=== PATIENT | female | born 1990 | race Caucasian/White ===

== ENCOUNTER 2021-03-25 04:04 | Inpatient (IN) | payer MEDICAID ==
[~2021-03-25] VITALS: Ht 160 cm; Wt 54.4 kg
[2021-03-25] MEDS ORDERED: HALOPERIDOL 5 MG TABLET PO PRN (08:30)
[2021-03-25] MEDS ORDERED: ZOLPIDEM TARTRATE 10 MG TABLET PO PRN (08:30)
[2021-03-25 10:29] VITALS: BP 104/65
[2021-03-25] MEDS: RisperiDONE 2 MG TABLET PO SCH (16:56)
[2021-03-25 17:07] VITALS: BP 98/67
[2021-03-25] MEDS ORDERED: DOCUSATE SODIUM 100 MG CAPSULE PO PRN (17:45)
[2021-03-25] MEDS ORDERED: GuaiFENesin/D-METHORPHAN [SUGAR-FREE] 200-20MG/10 ML SYRUP UDCUP PO PRN (17:45)
[2021-03-25] MEDS ORDERED: PETROLATUM,WHITE 28 GM JELLY TP PRN (17:45)
[2021-03-25] MEDS ORDERED: LOPERAMIDE HCL 2 MG CAPSULE PO PRN (17:45)
[2021-03-25] MEDS ORDERED: ONDANSETRON HCL 4 MG TABLET PO PRN (17:45)
[2021-03-25] MEDS ORDERED: CloNIDine HCL 0.1 MG TABLET PO PRN (17:45)
[2021-03-25] MEDS ORDERED: MAG HYDROX/AL HYDROX/SIMETH ES 30 ML SUSPENSION UDCUP PO PRN (17:45)
[2021-03-25] MEDS ORDERED: ACETAMINOPHEN 325 MG TABLET PO PRN (17:45)
[2021-03-25] MEDS ORDERED: MAGNESIUM HYDROXIDE SUSPENSION 30 ML UDCUP PO PRN (17:45)
[2021-03-25] MEDS ORDERED: IBUPROFEN 400 MG TABLET PO PRN (17:45)
[2021-03-25] MEDS ORDERED: NICOTINE 14 MG/24 HOUR PATCH TD PRN (17:45)
[2021-03-25] MEDS ORDERED: ALBUTEROL SULFATE HFA 90 MCG/PUFF 8 GM INHALER IH PRN (17:45)
[2021-03-25] MEDS: LORazepam 2 MG TABLET PO PRN (21:03)
[2021-03-26 04:22] VITALS: BP 106/67
[2021-03-26 07:41] LABS: BASOPHILS % (AUTO) 0.6 % (0.0-2.0); EOSINOPHILS % (AUTO) 2.7 % (1.0-6.0); HEMOGLOBIN 12.1 g/dL (12.0-16.0); LYMPHOCYTES # (AUTO) 2.1 K/uL (1.0-4.8); LYMPHOCYTES % (AUTO) 63.7 % (22.0-44.0); MEAN CORPUSCULAR HEMOGLOBIN 31.4 pg (26.0-34.0); MEAN CORPUSCULAR HGB CONC 32.8 G/dL (31.0-37.0); MEAN CORPUSCULAR VOLUME 96 fL (80-100); MONOCYTES # (AUTO) 0.3 K/uL (0.1-1.0); MONOCYTES % (AUTO) 7.6 % (2.0-9.0); NEUTROPHILS # (AUTO) 0.8 K/uL (1.8-7.7); NEUTROPHILS % (AUTO) 25.4 % (40.0-70.0); PLATELET COUNT (AUTO) 124 K/uL (150-450); RED BLOOD CELL COUNT(AUTO) 3.87 MIL/uL (4.00-5.20)
[2021-03-26 07:51] LABS: HEMOGLOBIN A1C 4.7 % (3.8-5.6)
[2021-03-26 07:56] LABS: PLATELET MORPHOLOGY COMMENT LARGE PLTS PRESENT
[2021-03-26 07:57] LABS: APPEARANCE,URINE TURBID (CLEAR); BILIRUBIN,URINE NEGATIVE (NEGATIVE); GLUCOSE, URINE (UA) NEGATIVE (NEGATIVE); KETONES,URINE NEGATIVE (NEGATIVE); LEUKOCYTE ESTERASE ,URINE NEGATIVE (NEGATIVE); NITRATE,URINE NEGATIVE (NEGATIVE); OCCULT BLOOD,URINE TRACE (NEGATIVE); PROTEIN,URINE NEGATIVE (NEGATIVE); UROBILINOGEN,URINE 0.2 mg/dL (<=1.0)
[2021-03-26 08:01] LABS: AMPHET/METH SCREEN,URINE NEGATIVE (NEGATIVE); BARBITURATE SCREEN, URINE NEGATIVE (NEGATIVE); BENZODIAZEPINES SCREEN,URINE NEGATIVE (NEGATIVE); CANNABINOID SCREEN,URINE NEGATIVE (NEGATIVE); COCAINE SCREEN,URINE NEGATIVE (NEGATIVE); METHADONE SCREEN, URINE NEGATIVE (NEGATIVE); OPIATE SCREEN,URINE NEGATIVE (NEGATIVE)
[2021-03-26 08:02] LABS: PHENCYCLIDINE SCREEN,URINE NEGATIVE (NEGATIVE)
[2021-03-26 08:21] LABS: ALANINE AMINOTRANSFERASE 15 U/L (12-78); ALBUMIN 2.8 g/dL (3.4-5.0); ALKALINE PHOSPHATASE 31 U/L (46-116); ASPARTATE AMINOTRANSFERASE 8 U/L (15-37); BILIRUBIN,TOTAL 0.2 mg/dL (0.1-1.0); CALCIUM, TOTAL 8.5 mg/dL (8.8-10.5); CHLORIDE 107 mmol/L (98-107); CHOL/HDL RATIO 5.1 (3.9-5.7); CHOLESTEROL 152 mg/dL (131-200); CREATININE 0.81 mg/dL (0.60-1.30); FREE T4 (FREE THYROXINE) 1.07 ng/dL (0.76-1.46); GLOMERULAR FILTR. RATE CALC > 60 mL/min (>60); GLUCOSE,RANDOM 90 mg/dL (70-110); HCG,QUANTITATIVE < 1 mIU/mL (0-6); HDL CHOLESTEROL 30 mg/dL (40-60); LDL CHOL (CALC.) 102 mg/dL (0-130); POTASSIUM 3.9 mmol/L (3.5-5.1); SODIUM SERUM 145 mmol/L (136-145); THYROID STIMULATING HORMONE 0.72 uIU/mL (0.36-3.74); TOTAL PROTEIN, SERUM 5.6 g/dL (6.4-8.2); TRIGLYCERIDES 100 mg/dL (15-150); UREA NITROGEN, BLOOD 10 mg/dL (7-18)
[2021-03-26 08:27] LABS: ANION GAP 9 mmol/L (8-16); CARBON DIOXIDE 29 mmol/L (22-29)
[2021-03-26 08:30] LABS: AMORPHOUS SEDIMENT,UR Many /LPF (None Seen); BACTERIA,URINE None Seen /HPF (None Seen); RBC,URINE 0-2 /HPF (0-2); WBC,URINE None Seen /HPF (0-5)
[2021-03-26 08:37] VITALS: BP 113/74
[2021-03-26] MEDS: RisperiDONE 2 MG TABLET PO SCH ×2 (09:00→16:35)
[2021-03-26 16:21] VITALS: BP 96/68
[2021-03-26] MEDS: LORazepam 2 MG TABLET PO PRN ×2 (16:35→20:42)
[2021-03-27 00:37] VITALS: BP 115/70
[2021-03-27] MEDS: LORazepam 2 MG TABLET PO PRN ×2 (08:45→16:32)
[2021-03-27] MEDS: RisperiDONE 2 MG TABLET PO SCH ×2 (08:45→16:32)
[2021-03-27 13:11] VITALS: BP 99/59
[2021-03-27 19:58] VITALS: BP 90/60
[2021-03-28 04:26] VITALS: BP 100/60
[2021-03-28 08:27] VITALS: BP 119/70
[2021-03-28] MEDS: RisperiDONE 2 MG TABLET PO SCH (09:00)
[2021-03-28] MEDS ORDERED: RISP2TAB76 PO (10:50)
== END 2021-03-28 15:31 | disposition home or self-care (01) | DRG 751 ==
LOC: B3A 08:29
DX: F29 Unspecified psychosis not due to a substance or known physiological condition (principal); E44.0 Moderate protein-calorie malnutrition; I95.9 Hypotension, unspecified; D72.819 Decreased white blood cell count, unspecified; Z88.2 Allergy status to sulfonamides; Z20.822 Contact with and (suspected) exposure to COVID-19
CPT/HCPCS: 80053; 80061; 80307; 81001; 83036; 84436; 84439; 84443; 84702; 85025